=== PATIENT | male | born 1985 | race Caucasian/White ===

== ENCOUNTER 2016-12-16 22:10 | Emergency (ER) | payer BC ==
[~2016-12-16] VITALS: Ht 188 cm; Wt 121.1 kg
[2016-12-16 22:15] VITALS: BP 148/98
--- NOTE | 2016-12-16 22:37 | NUR ---
PT TAKEN TO XRAY
--- NOTE | 2016-12-16 22:44 | NUR ---
PT BACK FROM XRAY
--- NOTE | 2016-12-16 23:11 | NUR ---
TO ER OF3
--- NOTE | 2016-12-16 23:29 | NUR ---
Patient being evaluated by physician.
[2016-12-16] MEDS ORDERED: DEXAMETHASONE 4 MG/ML VIAL PO ONE (23:30)
[2016-12-16] MEDS ORDERED: PENICILLIN G BENZATHINE C-R 1.2 MU/2 ML SYR IM ONE ×2 (23:30→23:44)
[2016-12-17] VITALS: BP 133/75
== END 2016-12-17 | disposition home or self-care (01) ==
LOC: MED 22:10
DX: R07.89 Other chest pain (principal); J03.80 Acute tonsillitis due to other specified organisms
CPT/HCPCS: 71020; 96372; 99284; J0558; J1100; 93005